=== PATIENT | female | born 1950 | race Caucasian/White ===

== ENCOUNTER 2021-05-19 14:51 | Emergency (ER) | payer MEDICARE, OTHER ==
[2021-05-19] MEDS ORDERED: NORCO 5-325 TA1 EACH PO (16:30)
[2021-05-22] MEDS ORDERED: ALLEGRA ALLERG180 MG PO (14:29)
[2021-05-22] MEDS ORDERED: REMERON30 MG PO (14:30)
[2021-05-22] MEDS ORDERED: DICLOFENAC SODI75 MG PO (14:31)
[2021-05-22] MEDS ORDERED: MAGNESIUM250 MG PO (14:31)
[2021-05-22] MEDS ORDERED: ZINC50 M2 PO (14:32)
== END 2021-05-19 19:17 | disposition home or self-care (01) ==
LOC: FER 14:51
DX: S52.501A Unspecified fracture of the lower end of right radius, initial encounter for closed fracture (principal); Z88.1 Allergy status to other antibiotic agents; W19.XXXA Unspecified fall, initial encounter; Y92.009 Unspecified place in unspecified non-institutional (private) residence as the place of occurrence of the external cause
CPT/HCPCS: 73110

== ENCOUNTER → 2021-05-26 | Day surgery (SDC) | payer MEDICARE, OTHER ==
[~2021-05-26] VITALS: Ht 165.1 cm; Wt 58.0 kg
[~2021-05-26] MED LIST: ALLEGRA ALLERG180 MG PO; DICLOFENAC SODI75 MG PO; MAGNESIUM250 MG PO; NORCO 5-325 TA1 EACH PO; REMERON30 MG PO; ZINC50 M2 PO
[2021-05-26 12:16] LABS: HCT 37.4 % (37.0-47.0); HGB 12.2 g/dl (12.5-16.0); MCHC 32.6 g/dL (32.0-36.0); MCV 94.9 fL (78.0-100.0); MPV 9.8 fL (6.0-9.5); RBC 3.94 M/uL (4.20-5.40); RDW 12.2 % (11.5-14.0)
== END | disposition home or self-care (01) ==
LOC: FAS 10:54
PROVIDERS: Legal Medicine
DX: S52.571A Other intraarticular fracture of lower end of right radius, initial encounter for closed fracture (principal); G89.18 Other acute postprocedural pain; K21.9 Gastro-esophageal reflux disease without esophagitis; G47.33 Obstructive sleep apnea (adult) (pediatric); Z87.891 Personal history of nicotine dependence; Z88.1 Allergy status to other antibiotic agents; Z91.040 Latex allergy status; W19.XXXA Unspecified fall, initial encounter
CPT/HCPCS: 36415; 73100; 76000; C1713; J1100; J2250; J2405; J2704; J2795; J3010; J7120